=== PATIENT | female | born 1975 | race Two or more races ===

== ENCOUNTER 2023-08-19 09:39 | Emergency (ER) | payer OTHER ==
[~2023-08-19] VITALS: Ht 157.5 cm; Wt 72.7 kg
[2023-08-19 09:52] VITALS: TEMP 98
[2023-08-19] MEDS ORDERED: LEVO25TA9 PO (09:56)
[2023-08-19] MEDS ORDERED: METF-1211 PO (09:56)
[2023-08-19] MEDS ORDERED: PERTUSS(ACELL),DIPH,TET VAC/PF 0.5 ML SYRINGE IM. ONE (10:45)
[2023-08-19] MEDS ORDERED: IBUP-1492 PO (11:17)
[2023-08-19 11:35] VITALS: BP 149/91; PULSE 75; RESP 16
== END 2023-08-19 11:35 | disposition home or self-care (01) ==
LOC: EMS 09:39
DX: S01.01XA Laceration without foreign body of scalp, initial encounter (principal); S13.4XXA Sprain of ligaments of cervical spine, initial encounter; E11.9 Type 2 diabetes mellitus without complications; E78.00 Pure hypercholesterolemia, unspecified; I10 Essential (primary) hypertension; E03.9 Hypothyroidism, unspecified; V49.88XA Car occupant (driver) (passenger) injured in other specified transport accidents, initial encounter; Y93.89 Activity, other specified; Y92.89 Other specified places as the place of occurrence of the external cause; Y99.8 Other external cause status
CPT/HCPCS: 12001; 82962; 90471; 90715; 99283

== ENCOUNTER 2023-09-07 18:04 | Emergency (ER) | payer OTHER ==
[~2023-09-07] VITALS: Ht 160 cm; Wt 68.2 kg
[~2023-09-07 18:04] MED LIST: IBUP-1492 PO; LEVO25TA9 PO; METF-1211 PO
[2023-09-07 18:10] VITALS: BP 137/89; PULSE 77; RESP 16; TEMP 97.6
== END 2023-09-07 18:49 | disposition home or self-care (01) ==
LOC: EMS 18:04
DX: S01.01XD Laceration without foreign body of scalp, subsequent encounter (principal); E11.9 Type 2 diabetes mellitus without complications; E78.00 Pure hypercholesterolemia, unspecified; I10 Essential (primary) hypertension; E03.9 Hypothyroidism, unspecified; Z48.02 Encounter for removal of sutures; X58.XXXD Exposure to other specified factors, subsequent encounter
CPT/HCPCS: 99281; Z7502

== ENCOUNTER 2025-04-06 12:56 | Emergency (ER) | payer OTHER ==
[~2025-04-06] VITALS: Ht 157.5 cm; Wt 70.5 kg
[2025-04-06 13:12] VITALS: TEMP 98.6
[2025-04-06 13:25] LABS: GLUCOMETER DEV NAME(LOC) ER.7; GLUCOSE,POINT OF CARE 152 MG/DL (70-110)
[2025-04-06 13:34] LABS: PLATELET COUNT (AUTO) 323 K/uL (150-450); RED BLOOD CELL COUNT(AUTO) 5.19 MIL/uL (4.00-5.20); RED CELL DISTRIBUTION WIDTH 14.3 % (11.5-14.5); WHITE BLOOD COUNT (AUTO) 14.6 K/uL (4.5-11.0)
[2025-04-06 13:40] LABS: CALCIUM, TOTAL 9.8 mg/dL (8.8-10.5); CREATININE 0.76 mg/dL (0.60-1.30); GLOMERULAR FILTR. RATE CALC > 60 mL/min (>60); GLUCOSE,RANDOM 152 mg/dL (70-110); SODIUM SERUM 137 mmol/L (136-145); UREA NITROGEN, BLOOD 14 mg/dL (7-18)
[2025-04-06 14:00] LABS: HCG,QUANTITATIVE 1 mIU/mL (0-6)
[2025-04-06] MEDS ORDERED: ATOR40TA71 PO (14:18)
[2025-04-06] MEDS ORDERED: DULA1.5P SQ (14:18)
[2025-04-06] MEDS ORDERED: LEVO112T7 PO (14:18)
[2025-04-06] MEDS ORDERED: OXYB10TA42 PO (14:18)
[2025-04-06] MEDS ORDERED: SODIUM CHLORIDE 0.9% 100 ML ONE (14:37)
[2025-04-06] MEDS ORDERED: IOHEXOL 350 MG/ML 100 ML VIAL ONE (14:37)
[2025-04-06 14:41] VITALS: BP 138/85; PULSE 95; RESP 16; O2SAT 97
[2025-04-06] MEDS: KETOROLAC TROMETHAMINE 30 MG/ML VIAL IVP ONE (14:42)
[2025-04-06] MEDS: ONDANSETRON HCL 4 MG/2 ML VIAL IVP ONE (14:43)
[2025-04-06 15:35] LABS: APPEARANCE,URINE TURBID (CLEAR); GLUCOSE, URINE (UA) NEGATIVE (NEGATIVE); LEUKOCYTE ESTERASE ,URINE SMALL (NEGATIVE); NITRATE,URINE NEGATIVE (NEGATIVE); OCCULT BLOOD,URINE NEGATIVE (NEGATIVE); SPECIFIC GRAVITIY, URINE 1.027 (1.003-1.030)
[2025-04-06 15:48] LABS: SQUAMOUS EPITHELIAL CELL,UR Rare /LPF (None Seen)
[2025-04-06] MEDS ORDERED: HYDR-4072 PO (16:58)
[2025-04-06] MEDS ORDERED: AMOX-457 PO (16:58)
[2025-04-06] MEDS ORDERED: ONDA-104 PO (16:58)
== END 2025-04-06 17:43 | disposition home or self-care (01) ==
LOC: EMS 13:07
DX: K57.32 Diverticulitis of large intestine without perforation or abscess without bleeding (principal); E03.9 Hypothyroidism, unspecified; E11.9 Type 2 diabetes mellitus without complications; E78.00 Pure hypercholesterolemia, unspecified; I10 Essential (primary) hypertension; Z98.890 Other specified postprocedural states; Z79.899 Other long term (current) drug therapy
CPT/HCPCS: 99285; 74177; 96374; 96375; 80048; 81001; 82150; 82962; 83690; 84702; 85025; 87086; 36415; J1885; Q9967; J1171; J2405; J7050